=== PATIENT | female | born 1975 | race Caucasian/White ===

== ENCOUNTER 2017-07-18 09:58 | Emergency (ER) | payer MEDICAID ==
[2017-07-18] MEDS: ONDANSETRON (ODT) 4 MG TAB ODT (10:50)
[2017-07-18] MEDS: KETOROLAC 60 MG INJ IM (10:54)
== END 2017-07-18 11:55 | disposition home or self-care (01) ==
LOC: FTE 09:58
DX: J32.1 Chronic frontal sinusitis (principal)
CPT/HCPCS: 81025; 96372; 99284-25

== ENCOUNTER 2017-08-11 20:14 | Emergency (ER) | payer MEDICAID ==
[2017-08-11] MEDS: TOBRAMYCIN/DEXAMETH 2.5 ML OPH RIGHT EYE (21:39)
[2017-08-11] MEDS: predniSONE 20 MG TAB PO (21:39)
== END 2017-08-11 22:06 | disposition home or self-care (01) ==
LOC: FTE 20:14
DX: H15.001 Unspecified scleritis, right eye (principal); H15.101 Unspecified episcleritis, right eye
CPT/HCPCS: 99284; J7512

== ENCOUNTER 2018-05-03 16:03 | Emergency (ER) | payer BC, MEDICAID ==
[2018-05-03 19:47] LABS: URINE BLOOD (Dip) POC Trace-intact (NEGATIVE); URINE GLUCOSE (Dip) POC Negative (NEGATIVE); URINE KETONES (Dip) POC Negative (NEGATIVE); URINE LEUKOCYTE EST (Dip) POC Negative (NEGATIVE); URINE NITRITE (Dip) POC Negative (NEGATIVE); URINE TOTAL PROTEIN POC Negative (NEGATIVE)
[2018-05-03 20:13] LABS: ADD UMIC NO; UR ASCORBIC ACID NEGATIVE (NEGATIVE); UR BILIRUBIN (Dip) NEGATIVE (NEGATIVE); UR BLOOD (Dip) NEGATIVE (NEGATIVE); UR CLARITY CLEAR (CLEAR); UR COLOR YELLOW (YELLOW); UR GLUCOSE (Dip) NEGATIVE (NEGATIVE); UR KETONES (Dip) NEGATIVE (NEGATIVE); UR LEUKOCYTE ESTERASE (Dip) NEGATIVE Leu/ul (NEGATIVE); UR NITRITE (Dip) NEGATIVE (NEGATIVE); UR SPECIFIC GRAVITY (Dip) 1.015 (1.003-1.030); UR TOTAL PROTEIN (Dip) NEGATIVE (NEGATIVE); UR UROBILINOGEN (Dip) NEGATIVE (NEGATIVE)
== END 2018-05-03 21:37 | disposition home or self-care (01) ==
LOC: FTE 16:03
DX: M79.602 Pain in left arm (principal); M79.662 Pain in left lower leg; R10.9 Unspecified abdominal pain
CPT/HCPCS: 74019; 81003; 81025; 93005; 99285-25

== ENCOUNTER 2018-09-21 15:34 | Emergency (ER) | payer BC ==
[2018-09-21] MEDS: SCOPOLAMINE 1.5 MG PATCH TRANSDERM (16:47)
[2018-09-21] MEDS: SOD CHLORIDE 0.9% 1,000 ML IV (17:03)
[2018-09-21 17:05] LABS: ADD MAN DIFF? NO
[2018-09-21 17:25] LABS: ALANINE AMINOTRANSFERASE 52 IU/L (13-69); ALBUMIN 4.3 g/dl (3.3-4.9); ALBUMIN/GLOBULIN RATIO 1.02; ALKALINE PHOSPHATASE 108 IU/L (42-121); ANION GAP 10 (5-13); ASPARTATE AMINO TRANSFERASE 35 IU/L (15-46); BILIRUBIN,INDIRECT 0.5 mg/dl (0-1.1); BILIRUBIN,TOTAL 0.5 mg/dl (0.2-1.3); BLOOD UREA NITROGEN 10 mg/dl (7-20); CALCIUM 8.9 mg/dl (8.4-10.2); CARBON DIOXIDE 26 mmol/L (21-31); CHLORIDE 102 mmol/L (97-110); CREATINE KINASE 51 IU/L (23-200); CREATININE 0.57 mg/dl (0.44-1.00); Estimated GFR > 60 mL/min (>60); GLUCOSE 86 mg/dl (70-220); POTASSIUM 3.8 mmol/L (3.5-5.1); SODIUM 138 mmol/L (135-144); TOTAL PROTEIN 8.5 g/dl (6.1-8.1)
[2018-09-21 17:37] LABS: CK INDEX 0.4; CK-MB < 0.22 ng/ml (0.0-2.4); INR 0.95; PROTIME 12.8 Sec (11.9-14.9); TROPONIN-I < 0.012 ng/ml (0.000-0.120)
[2018-09-21 17:38] LABS: PARTIAL THROMBOPLASTIN TIME 25.9 Sec (23.0-35.0)
[2018-09-21 17:40] LABS: D-DIMER 1041.54 ng/ml (<460)
[2018-09-21 17:59] LABS: BASOPHILS % 0.3 % (0.0-2.0); EOSINOPHILS # 0.2 10^3/ul (0.0-0.5); EOSINOPHILS % 1.5 % (0.0-7.0); HEMOGLOBIN 12.2 g/dl (12.0-16.0); LYMPHOCYTES # 1.8 10^3/ul (0.8-2.9); LYMPHOCYTES % 17.3 % (15.0-51.0); MEAN CORPUSCULAR HGB CONC 31.3 g/dl (32.0-37.0); MEAN CORPUSCULAR VOLUME 86.3 fl (82.0-101.0); MEAN PLATELET VOLUME 10.5 fl (7.4-10.4); MONOCYTE # 0.5 10^3/ul (0.3-0.9); NEUTROPHIL # 7.7 10^3/ul (1.6-7.5); NEUTROPHILS % 75.5 % (39.0-77.0); PLATELET COUNT 319 10^3/UL (140-415); RED BLOOD COUNT 4.52 10^6/ul (4.20-5.40); RED CELL DISTRIBUTION WIDTH 14.7 % (11.5-14.5)
[2018-09-21 17:59] LABS: WHITE BLOOD COUNT 10.2 10^3/ul (4.8-10.8)
[2018-09-21] MEDS: SOD CHLORIDE 0.9% 100 ML (18:17)
[2018-09-21] MEDS: IOHEXOL 100 ML (18:18)
== END 2018-09-21 19:17 | disposition home or self-care (01) ==
LOC: E/R 15:34
DX: R20.2 Paresthesia of skin (principal); R06.02 Shortness of breath
CPT/HCPCS: 70450; 71045; 71275; 80053; 82550; 82553; 84484; 85025; 85378; 85610; 85730; 93005; 93970; 96360; 99285-25